=== PATIENT | male | born 1960 | race Hispanic/Latino ===

== ENCOUNTER 2021-06-07 00:54 | Emergency (ER) | payer MEDICAID ==
[~2021-06-07] VITALS: Ht 162.6 cm; Wt 63.5 kg
[2021-06-07 01:02] VITALS: BP 102/56
[2021-06-07 02:11] VITALS: BP 110/66
[2021-06-07 03:44] VITALS: BP 116/64
== END 2021-06-07 04:02 ==
LOC: EDH 00:54
DX: Z04.3 Encounter for examination and observation following other accident (principal); F31.9 Bipolar disorder, unspecified; Z98.890 Other specified postprocedural states; W18.39XA Other fall on same level, initial encounter; Y93.E1 Activity, personal bathing and showering; Y92.89 Other specified places as the place of occurrence of the external cause; Y99.8 Other external cause status
CPT/HCPCS: 70450